=== PATIENT | female | born 1985 ===

== ENCOUNTER 2025-01-11 05:08 | Outpatient (CLI) | payer OTHER, SELFPAY ==
--- NOTE | 2025-01-11 | DI.RAD_ITS ---
Exam(s) XR HIP PELVIS ADULT BL EXAM: XR HIP PELVIS ADULT BL CLINICAL HISTORY: DEGENERATIVE ARTHRITIS M19.90. TECHNIQUE: 2D digital imaging was performed. Three views. COMPARISON: No exams were available for comparison FINDINGS: BONES: No acute fracture is present. No bony destructive lesion is seen. JOINTS: No dislocation present. The hip joint spaces are maintained. No significant degenerative changes. SI joints and pubic symphysis are unremarkable. SOFT TISSUE: Normal. IMPRESSION: Unremarkable radiographs of the bilateral hips. DATA REPOSITORY: RADIATION DOSE DELIVERED:
--- NOTE | 2025-01-11 | DI.RAD_ITS ---
Exam(s) XR ANKLE RT 2V XR ANKLE LT 2V EXAM: XR ANKLE LT 2V CLINICAL HISTORY: DEGENERATIVE ARTHRITIS M19.90 TECHNIQUE: 2D digital imaging was performed. AP and lateral weight-bearing views of both ankles. COMPARISON: CR XR ANKLE RT 2V from 01/11/2025 FINDINGS: BONES: No acute fracture is present. No bony destructive lesion is seen. JOINTS:The ankle mortise is normally aligned. There is no evidence of joint space narrowing or periarticular spurring. SOFT TISSUE: Normal. IMPRESSION: Unremarkable radiographs of the bilateral ankles. DATA REPOSITORY: RADIATION DOSE DELIVERED:
--- NOTE | 2025-01-11 | DI.RAD_ITS ---
Exam(s) XR SHOULDER LT COMPLETE 2+V XR SHOULDER RT COMPLETE 2+V EXAM: XR SHOULDER LT COMPLETE 2+V CLINICAL HISTORY: DEGENERATIVE ARTHRITIS M19.90. TECHNIQUE: 2D digital imaging was performed. Five views of both shoulders. COMPARISON: No exams were available for comparison FINDINGS: BONES: No acute fracture is present. No bony destructive lesion is seen. JOINTS: No dislocation present. No joint space narrowing. No significant degenerative changes of the AC joint or glenohumeral joint. SOFT TISSUE: Normal. IMPRESSION: Unremarkable radiographs of the bilateral shoulders. DATA REPOSITORY: RADIATION DOSE DELIVERED:
== END 2025-01-11 05:28 ==
LOC: DI 05:08
PROVIDERS: Visit Provider Chiropractor
DX: M19.09 Primary osteoarthritis, other specified site (principal)
CPT/HCPCS: 73521; 73030; 73600